=== PATIENT | male | born 1970 | race Caucasian/White ===

== ENCOUNTER 2018-11-30 22:23 | Emergency (ER) | payer SELFPAY ==
[~2018-11-30] VITALS: Ht 165.1 cm; Wt 136.4 kg
[2018-11-30 22:30] VITALS: Ht 165.1 cm; Wt 136.4 kg
[2018-12-01] MEDS ORDERED: OMEG-135 PO (02:37)
--- NOTE | 2018-12-01 05:28 | ERD ---
ER Documentation Chief Complaint Chief Complaint c/o non radiating lft side cp off/on since sat. hx blood clots. +SOB HPI This is a 48-year-old male with nonradiating onset of chest pain on and off since Friday. Patient has pain is mild to moderate intensity no exacerbating living factors. Mild associated shortness of breath but no diaphoresis. No fevers no chills. No other current complaints. ROS All systems reviewed and are negative except as per history of present illness. Medications Home Meds Reported Medications [place]-3 Fatty Acids/Fish Oil (Fish Oil 1,000 mg Capsule) 1 Each Capsule, 1 EACH PO DAILY, CAP 12/01/18 Allergies Allergies: Coded Allergies: No Known Drug Allergy (Verified Allergy, Unknown, 11/30/18) PMhx/Soc Medical and Surgical Hx: pt denies Surgical Hx History of Surgery: No Anesthesia Reaction: No Hx Neurological Disorder: No Hx Respiratory Disorders: No Hx Cardiac Disorders: Yes (htn) Hx Psychiatric Problems: No Hx Miscellaneous Medical Probl: Yes (BLOOD CLOTS ) Hx Alcohol Use: No Hx Substance Use: No Hx Tobacco Use: No Smoking Status: Never smoker Physical Exam Vitals Vital Signs Date Temp Pulse Resp B/P (MAP) Pulse Ox O2 O2 Flow FiO2 Time Delivery Rate 12/01/18 82 16 162/89 97 Room Air 04:20 (113) 12/01/18 78 16 169/95 99 Room Air 03:00 (119) 12/01/18 76 16 169/96 99 Room Air 01:00 (120) 11/30/18 98.6 87 24 188/114 98 22:30 (138) Physical Exam Const: No acute distress Head: Atraumatic Eyes: Normal Conjunctiva ENT: Normal External Ears, Nose and Mouth. Neck: Full range of motion. No meningismus. Resp: Clear to auscultation bilaterally Cardio: Regular rate and rhythm, no murmurs Abd: Soft, non tender, non distended. Normal bowel sounds Skin: No petechiae or rashes Back: No midline or flank tenderness Ext: No cyanosis, or edema Neur: Awake and alert Psych: Normal Mood and Affect Result Diagram: 12/01/18 0030 12/01/18 0030 Results 24 hrs Laboratory Tests Test 12/01/18 00:30 White Blood Count 10.1 10^3/ul Red Blood Count 5.50 10^6/ul Hemoglobin 13.7 g/dl Hematocrit 44.7 % Mean Corpuscular Volume 81.3 fl Mean Corpuscular Hemoglobin 24.9 pg Mean Corpuscular Hemoglobin Concent 30.6 g/dl Red Cell Distribution Width 16.4 % Platelet Count 278 10^3/UL Mean Platelet Volume 9.6 fl Immature Granulocytes % 0.400 % Neutrophils % 58.2 % Lymphocytes % 25.8 % Monocytes % 8.9 % Eosinophils % 6.0 % Basophils % 0.7 % Nucleated Red Blood Cells % 0.0 /100WBC Immature Granulocytes # 0.040 10^3/ul Neutrophils # 5.9 10^3/ul Lymphocytes # 2.6 10^3/ul Monocytes # 0.9 10^3/ul Eosinophils # 0.6 10^3/ul Basophils # 0.1 10^3/ul Nucleated Red Blood Cells # 0.0 10^3/ul Sodium Level 142 mmol/L Potassium Level 4.2 mmol/L Chloride Level 105 mmol/L Carbon Dioxide Level 30 mmol/L Anion Gap 7 Blood Urea Nitrogen 18 mg/dl Creatinine 0.57 mg/dl Est Glomerular Filtrat Rate mL/min > 60 mL/min Glucose Level 132 mg/dl Calcium Level 9.0 mg/dl Troponin I < 0.012 ng/ml Procedures/MDM EKG: Rate/Rhythm: Normal Sinus Rhythm QRS, ST, T-waves: No changes consistent w/ acute ischemia Impression: No evidence of ischemia or arrhythmia Chest X-ray 1V Interpreted by me: Soft Tissue: No acute abnormalities Bones: No acute abnormalities Mediastinum/Cardiac Silhouette/Lungs: No acute abnormalities Patient's symptoms are concerning for cardiac cause will require inpatient workup and continuous monitoring. Further w/u for ischemia, arrhythmia, PE or dissection will be deferred to the inpatient team. Accepting Care Team: Current data and ongoing care discussed. Time: 5:30 AM Primary Provider: Hospitalist Consulting: Deferred to inpatient team Outstanding Data: none Departure Diagnosis: Primary Impression: Chest pain Chest pain type: unspecified Qualified Codes: R07.9 - Chest pain, unspecified Condition: Serious EDUARDO MIRANDA Dec 01, 2018 05:28
[2018-12-01] MEDS ORDERED: SOD CHLORIDE 0.45% 1,000 ML IV SCH (05:42)
[2018-12-01] MEDS ORDERED: MAGNESIUM HYDROXIDE 30ML CUP PO PRN (06:00)
[2018-12-01] MEDS ORDERED: DOCUSATE SODIUM 100 MG CAP PO PRN (06:00)
[2018-12-01] MEDS ORDERED: ACETAMINOPHEN 325 MG TAB PO PRN (06:00)
[2018-12-01] MEDS ORDERED: ONDANSETRON 4 MG INJ IV PRN (06:00)
[2018-12-01] MEDS ORDERED: LORAZEPAM 2 MG INJ IV PRN (06:00)
[2018-12-01] MEDS ORDERED: NITROGLYCERIN (SL) 0.4 MG TAB SL PRN (06:00)
[2018-12-01] MEDS ORDERED: NACL 0.9% 3 ML SYG IV SCH (06:00)
[2018-12-01] MEDS ORDERED: morphine 2 MG INJ IV PRN (06:00)
[2018-12-01] MEDS ORDERED: ALBUTEROL/IPRATROPIUM (NEB) 3 ML AMP HHN PRN (06:00)
[2018-12-01] MEDS ORDERED: hydrALAzine 20 MG INJ IV PRN (06:00)
[2018-12-01] MEDS ORDERED: HYDROCODONE/APAP (5/325) TAB PO PRN (06:00)
--- NOTE | 2018-12-01 08:20 | HP ---
DATE OF ADMISSION: 11/30/2018 CHIEF COMPLAINT: Chest pain. HISTORY OF PRESENT ILLNESS: A 48-year-old male with past medical history of polio since childhood wh o is wheelchair bound, hypertension, obesity, high cholesterol who comes in after experiencing chest pain. He states that chest pain has been going off and on for the last 2 days. He has never had thi s pain before. No history of any stroke or heart attack. He describes the pain as sharp in nature, sort of in the left sternal area, nonradiating. He tried some ibuprofen at home which helped relieve the symptoms somewhat. He has also had some mild shortness of breath symptoms. No upper or lower G I bleeding, no nausea, vomiting, no fevers or chills, no diarrhea or constipation. No headaches or d izziness. When he came in today, he was found with elevated blood pressure systolic 169/96. First t roponin is negative. He states his brother of heart attack in 2013 at age 47. The patient stat es he has not been taking his blood pressure medicines for the last 6 months due to insurance issues. PAST MEDICAL HISTORY: As stated above. ALLERGIES: NO KNOWN DRUG ALLERGIES. HOME MEDICATIONS: Fish oil 1000 mg daily. FAMILY HISTORY: Mother has hypertension. Father diabetes. Again brother of heart attack at ag e 47 in 2013. SOCIAL HISTORY: Negative for smoking or drinking, or IV drug abuse. PHYSICAL EXAMINATION: VITAL SIGNS: T-max 98.6, pulse 76 to 87, respirations 16 to 24, blood pressure to 188 to 162 systoli c over 114 to 89 diastolic, satting at 99% on room air. GENERAL: The patient lying in bed, obese, alert, no acute distress. HEENT: Pupils equal, round, react to light. Extraocular muscles are intact. NECK: Supple, no thyromegaly. LUNGS: Clear to auscultation bilaterally. CARDIOVASCULAR: S1, S2 heard. No rubs or gallops. ABDOMEN: Soft, nontender, nondistended. Normal bowel sounds. No rebound or guarding. MUSCULOSKELETAL: No lower extremity edema bilaterally. NEUROLOGIC: The patient is wheelchair bound, awake and alert. LABORATORIES: CBC is normal. Basic metabolic panel is normal. First troponin is negative. Chest x -ray was performed, shows no evidence of any CHF. There is increased density at the left base may be due to atelectasis and epicardial fat pad, small infiltrate in the lingula, left upper lobe, cannot be excluded and the thickness of the right costophrenic angle, may be due to atelectasis; however, sm all infiltrate and small right pleural effusion cannot be excluded. ASSESSMENT AND PLAN: A 48-year-old male coming in with chest pain symptoms, shortness of breath with a positive family history of SD, rule out acute coronary syndrome. 1. Chest pain. Again, given his family history, I want to rule him out for acute coronary syndrome. Admit the patient to telemetry floor, trend his troponins q.6hours x3. Continue high dose aspirin, morphine, oxygen, nitroglycerin p.r.n. Check echocardiogram. Get a cardiology consult. The patien t moving a bit from further workup and cardiology teams at a stress test or other, but again we will discuss with cardiology team first before any decisions are made on this. 2. Hypertensive urgency. Again, patient has been noncompliant with his blood pressure medicines for the past 6 months. We will continue to monitor blood pressure and he will be on hydralazine p.r.n. systolic greater than 160. Also Clonidine p.r.n. Consider starting calcium channel tasha now p.o. and try to obtain patient's home medication list. 3. History of polio, wheelchair bound. We will get PT, OT consults. Monitor for now. 4. History of obesity. Milieu Manager on weight cessation. 5. Deep venous thrombosis prophylaxis, heparin subQ. Dictated By: DORETHA MYERS Conf#: [id number] DID#: [id number]
[2018-12-01] MEDS ORDERED: ASPIRIN (EC) 325 MG TAB PO SCH (09:00)
[2018-12-01] MEDS ORDERED: AMLODIPINE 5 MG TAB PO SCH (09:00)
[2018-12-01] MEDS ORDERED: HEPARIN 5,000 UNIT/1 ML VIAL SC SCH (09:00)
[2018-12-01] MEDS ORDERED: FISH OIL 1,000 MG CAP PO SCH (09:00)
[2018-12-01] MEDS ORDERED: AMLO-145 PO (13:45)
[2018-12-01] MEDS ORDERED: LISI-313 PO (13:45)
--- NOTE | 2018-12-01 13:46 | PDOCDIS ---
Discharge Instructions DIAGNOSIS Discharge Diagnosis Atypical chest pain Hypertension CONDITION [id number] Patient Condition: [id number] Stable FOLLOW UP/APPOINTMENTS Follow-up Plan Take your blood pressure medications as prescribed You can take ibuprofen if you continue to have pain Check in with your doctor regularly to manage your blood pressure Return to the hospital if you are having trouble breathing, chest pain, or any other concerning symptoms ART SUTTON MD Dec 01, 2018 13:46
--- NOTE | 2018-12-01 14:44 | DS ---
Date/Time of Note Date/Time of Note DATE: 12/01/18 TIME: 14:43 Discharge Summary Admission/Discharge Info Admit Date/Time Discharge Date/Time Discharge Diagnosis Atypical chest pain Hypertension Patient Condition: Stable Hospital Course Tropoinn and EKG not consistent with ischemic heart disease His description of his chest pain is sharp and stabbing and occurs with cough and movement of his arms. It is clearly reproducible on exam. I suspect this is musculoskeletal chest apin. He has no respiratory signs or symptoms to suggest PE, negative Wells criteria. I have prescribed him amlodipnie and lisinopril and encouraged him to follow up with his PMD in coming weeks for BP check Home Meds Active Scripts Lisinopril* (Lisinopril*) 5 Mg Tablet, 5 MG PO DAILY for 90 Days, #90 TAB 5 Refills Prov:ART SUTTON MD 12/01/18 Amlodipine Besylate* (Amlodipine Besylate*) 5 Mg Tablet, 5 MG PO DAILY for 90 Days, #90 TAB Prov:ART SUTTON MD 12/01/18 Discontinued Reported Medications [place]-3 Fatty Acids/Fish Oil (Fish Oil 1,000 mg Capsule) 1 Each Capsule, 1 EACH PO DAILY, CAP 12/01/18 Follow-up Plan Take your blood pressure medications as prescribed You can take ibuprofen if you continue to have pain Check in with your doctor regularly to manage your blood pressure Return to the hospital if you are having trouble breathing, chest pain, or any other concerning symptoms Primary Care Provider Care Physician No Primary Pending Labs Laboratory Tests Test 12/01/18 00:30 12/01/18 06:47 White Blood Count 10.1 10^3/ul (4.8-10.8) Red Blood Count 5.50 10^6/ul (4.70-6.10) Hemoglobin 13.7 g/dl (14.0-18.0) Hematocrit 44.7 % (42.0-52.0) Mean Corpuscular Volume 81.3 fl (82.0-101.0) Mean Corpuscular 24.9 pg (29.0-33.0) Hemoglobin Mean Corpuscular 30.6 g/dl (32.0-37.0) Hemoglobin Concent Red Cell Distribution 16.4 % (11.5-14.5) Width Platelet Count 278 10^3/UL (140-415) Mean Platelet Volume 9.6 fl (7.4-10.4) Immature Granulocytes % 0.400 % (0.001-0.429) Neutrophils % 58.2 % (39.0-77.0) Lymphocytes % 25.8 % (15.0-51.0) Monocytes % 8.9 % (0.0-11.0) Eosinophils % 6.0 % (0.0-7.0) Basophils % 0.7 % (0.0-2.0) Nucleated Red Blood Cells 0.0 /100WBC (0.0-0.0) % Immature Granulocytes # 0.040 10^3/ul (0.0-0.031) Neutrophils # 5.9 10^3/ul (1.6-7.5) Lymphocytes # 2.6 10^3/ul (0.8-2.9) Monocytes # 0.9 10^3/ul (0.3-0.9) Eosinophils # 0.6 10^3/ul (0.0-0.5) Basophils # 0.1 10^3/ul (0.0-0.1) Nucleated Red Blood Cells 0.0 10^3/ul (0.0-0.0) # Sodium Level 142 mmol/L (135-144) Potassium Level 4.2 mmol/L (3.5-5.1) Chloride Level 105 mmol/L (97-110) Carbon Dioxide Level 30 mmol/L (21-31) Anion Gap 7 (5-13) Blood Urea Nitrogen 18 mg/dl (7-20) Creatinine 0.57 mg/dl (0.61-1.24) Est Glomerular Filtrat > 60 mL/min (>60) Rate mL/min Glucose Level 132 mg/dl (70-220) Calcium Level 9.0 mg/dl (8.4-10.2) Troponin I < 0.012 < 0.012 ng/ml (0.000-0.120) ng/ml (0.000-0.120) Creatine Kinase 159 IU/L (23-200) Creatine Kinase Index 1.5 Creatinine Kinase MB 2.35 ng/ml (0.0-2.4) (Mass) Free Thyroxine 1.19 ng/dl (0.64-1.79) ART SUTTON MD Dec 01, 2018 14:44
[2018-12-01 15:25] VITALS: BP 144/94; PULSE 81; RESP 16
--- NOTE | 2018-12-01 20:34 | RADRPT ---
Echocardiogram Report Patient Name: EMELIA RENDONPatient ID: [id number] : 1970 (48y 9m)Study Date: 12/01/2018 10:57:12 AM Gender: MAccession #: [id number] Tech: Janet George RDCS Location: [facility] Ref.Physician: DORETHA JASON Height(Cm): BSA: Weight(Kg): Quality: AdequateOrder Physician: DORETHA JASON Account #: Procedures: Echocardiographic Report: Transthoracic echocardiogram with complete 2D, M-Mode, and doppler examination. Indications: Chest Pain. Measurements: 2D/M Mode Doppler Measurement Value Normal Range Measurement Value Normal Range LVIDd 2D 5.1 [ 4.2 - 5.8 ] cm AV Peak Siddhartha 1.3 [ 100.0 - 170.0 ] cm/sec LVIDs 2D 3.1 [ 2.5 - 4.0 ] cm AV Peak PG 7.0 [ 2.0 - 9.0 ] mmHg LVPWd 2D 1.0 [ 0.6 - 1.0 ] cm LVOT Peak Siddhartha 0.8 [ 70.0 - 110.0 ] cm/sec IVSd 2D 1.2 [ 0.6 - 1.0 ] cm LVOT Peak PG 3.0 [ 2.0 - 6.0 ] mmHg AoR Diam 2D 2.5 [ 2.6 - 3.4 ] cm MV E Peak Siddhartha 0.8 [ 60.0 - 130.0 ] cm/sec EDV 2D 123.0 [ 62.0 - 150.0 ] ml MV A Peak Siddhartha 1.1 [ 100.0 - 120.0 ] cm/sec ESV 2D 38.2 [ 21.0 - 61.0 ] ml MV E/A 0.7 [ 0.8 - 1.5 ] ratio EF 2D 68.9 [ 52.0 - 72.0 ] percent MV Decel Time 180 [ 104 - 258 ] msec LA Dimen 2D 3.1 [ 3.0 - 4.0 ] cm Lat E` Siddhartha 0.1 [ 10.0 - 15.0 ] cm/sec Lateral E/E` 11.1 [ 1.0 - 2.0 ] ratio MV E/A 0.7 [ 0.8 - 1.5 ] ratio TR Peak Siddhartha 1.6 [ 100.0 - 280.0 ] cm/sec TR Peak PG 11.0 mmHg RVSP 19.0 [ 10.0 - 36.0 ] mmHg RA Pressure 8.0 mmHg Findings: Left Ventricle: Normal left ventricular systolic function. Normal left ventricular cavity size. Mild concentric left ventricular hypertrophy. Ejection fraction is visually estimated at 55-60 %. Tissue Doppler/Mitral Doppler indices are consistent with impaired relaxation (Stage I diastolic dysfunction). Right Ventricle: Normal right ventricular size. Normal right ventricular systolic function. Left Atrium: The left atrium is normal in size. Right Atrium: The right atrium is normal in size. Mitral Valve: Normal appearance and function of the mitral valve with trace physiologic regurgitation. Aortic Valve: Normal appearance of the aortic valve. No significant aortic stenosis or insufficiency. Tricuspid Valve: Normal appearance of the tricuspid valve. The estimated Peak RVSP is 19 mmHg. There is trace tricuspid regurgitation. Pulmonic Valve: Pulmonic valve not well visualized. Pericardium: Normal pericardium with no significant pericardial effusion. Aorta: Normal aortic root. IVC: Normal size and normal respiratory collapse consistent with normal right atrial pressure. Conclusions: Technically difficult study with off axis views. Normal left ventricular systolic function. Normal left ventricular cavity size. Mild concentric left ventricular hypertrophy. Ejection fraction is visually estimated at 55-60 %. Tissue Doppler/Mitral Doppler indices are consistent with impaired relaxation (Stage I diastolic dysfunction). No significant valvular stenosis or regurgitation seen. Normal appearance of the tricuspid valve. The estimated Peak RVSP is 19 mmHg. There is trace tricuspid regurgitation. Normal size and normal respiratory collapse consistent with normal right atrial pressure. Electronically Signed By: Edmund Leonard 2018-12-01 20:33:20 PDT
== END 2018-12-01 15:26 | disposition home or self-care (01) ==
LOC: E/R 22:23 → SUATTDRO 12-01 10:12 → CANRESERV 12-01 13:50 → E/R 12-01 15:26 → CANBEDREQ 12-01 17:17
PROVIDERS: ATTEND Internal Medicine
DX: R07.9 Chest pain, unspecified (principal); I10 Essential (primary) hypertension
CPT/HCPCS: 36415; 71045; 80048; 82550; 82553; 84439; 84484; 85025; 93005; 93306; 96372; 96374; 99285; J1644; J2060; J2270